=== PATIENT | female | born 1990 | race Caucasian/White ===

== ENCOUNTER → 2018-09-22 11:06 | Outpatient (CLI) | payer OTHER, SELFPAY ==
--- NOTE | 2018-09-22 11:08 | DI.RAD.S_ITS ---
PROCEDURE: XR SHOULDER LT MIN 2V INDICATIONS: Pain in left shoulder TECHNIQUE: 3 views of the shoulder were acquired. COMPARISON: [facility], , SHOULDER MINIMUM 2 VIEW LEFT, 07/17/2016, 17:46. FINDINGS: Bones: No fractures or dislocations. No suspicious bony lesions. Visualized ribs appear intact. Soft tissues: No suspicious soft tissue calcifications. IMPRESSION: Unremarkable left shoulder radiographs. MRI may be helpful for better evaluation, if indicated. Dictated by: Haris Flores M.D. on 09/22/2018 at 10:48 Approved by: Haris Flores M.D. on 09/22/2018 at 10:49
== END ==
PROVIDERS: PCP Student in an Organized Health Care Education/Training Program; Visit Provider Physician Assistant
DX: M25.512 Pain in left shoulder (principal)
CPT/HCPCS: 73030

== ENCOUNTER 2018-09-24 05:42 | Emergency (ER) | payer OTHER, SELFPAY ==
[2018-09-24 06:06] VITALS: BP 122/69; PULSE 107; RESP 16; TEMP 36.3; O2SAT 97; BMI 24.1
--- NOTE | 2018-09-24 06:12 | ED_ITS ---
HPI - Female Genitourinary General Chief complaint: Urogenital-Female Stated complaint: blood in urine feels need to go constantly Time Seen by Provider: 09/24/18 06:02 Source: patient Mode of arrival: ambulatory Limitations: no limitations History of Present Illness HPI Narrative: Patient is a 28-year-old female who presents with painful frequent urination. She noticed blood in her urine this morning. No fever or chills no flank pain no nausea vomiting. MD Complaint: UTI Related Data Home Medications Medication Instructions Recorded Confirmed norgestimate-ethinyl estradiol 1 tab PO DAILY 09/24/18 09/24/18 [Sprintec (28)] Previous Rx's Medication Instructions Recorded prazosin 1 mg capsule 1 mg PO BEDTIME #30 cap 08/11/18 nitrofurantoin monohyd/m-cryst 100 mg PO BID #10 cap 09/24/18 [Macrobid] nitrofurantoin monohyd/m-cryst 100 mg PO BID #14 cap 09/24/18 [Macrobid] Allergies Allergy/AdvReac Type Severity Reaction Status Date / Time clarithromycin Allergy Mild Verified 09/24/18 06:18 Sulfa (Sulfonamide Allergy Mild Verified 09/24/18 06:18 Antibiotics) Review of Systems Review of Systems GENERAL: Denies chills, fatigue, malaise, fever, sweats, travel HEENT: Denies sinus pain, ear pain, sore throat, difficulty swallowing, neck pain RESPIRATORY: Denies dyspnea, cough, wheezing, hemoptysis, sputum. CARDIOVASCULAR: Denies chest pain, palpitations, orthopnea, edema GASTROINTESTINAL: Denies nausea, vomiting, abdominal pain, diarrhea, constipation, melena. : See HPI MUSCULOSKELETAL: Denies weakness, joint pain, or bony pain SKIN: No rash, no erythema, no pruritus NEUROLOGIC: Denies weakness, dizziness, headache, numbness, change in speech, confusion PSYCHIATRIC: No concerning psychosocial issues. 12 point review of systems is negative except for those stated above and HPI PFSH Medical History Hx of fracture of toe (Resolved 04/2014) No pertinent past medical history (Resolved) Surgical History No history of previous surgery (Resolved) Family History Father Diabetes mellitus Mother Hypertension Social History Smoking Status: Never smoker alcohol intake: current (Socially) substance use type: does not use Exam Initial Vital Signs Initial Vital Signs: Vital Signs Temperature 97.4 F L 09/24/18 06:06 Pulse Rate 107 H 09/24/18 06:06 Respiratory Rate 16 09/24/18 06:06 Blood Pressure 122/69 09/24/18 06:06 Pulse Oximetry 97 09/24/18 06:06 GENERAL: Well-appearing, well-nourished and in no acute distress. HEENT: Head atraumatic,EOMI, pupils reactive CARDIOVASCULAR: Regular rate and rhythm without murmurs, rubs or gallops. RESPIRATORY: Breath sounds equal bilaterally, no wheezes rales or rhonchi. ABDOMEN: Soft, nontender. Normoactive bowel sounds all 4 quadrants. No guarding or rebound. : No CVA tenderness EXTREMITIES: Normal range of motion, no clubbing or edema. Neurovascularly intact NEUROLOGICAL: Alert and oriented x4.Normal gait and speech. SKIN: Warm, dry, no laceration, no petechiae, no rashes or lesions. Course Orders Ordered: ED Orders 09/24/18 05:50 Test Urine Stat Urinalysis and Microscopic Stat Urine Culture Stat Vital Signs - 8 hr 09/24/18 06:06 Temperature 97.4 F L Pulse Rate 107 H Respiratory Rate 16 Blood Pressure 122/69 Pulse Oximetry 97 MDM - Female Genitourinary Lab Data Attestation: I reviewed the patient's lab results. Lab Results 09/24/18 09/24/18 Range/Units 05:50 05:50 Urine Color Red Urine Appearance Turbid Urine pH 5.5 (4.5-8.0) Ur Specific [place] 1.025 (1.000-1.035) Urine Protein 2+ H (Negative) Urine Glucose (UA) Negative (Normal) g/dL Urine Ketones Negative (NEGATIVE) Urine Occult Blood 3+ H (Negative) Urine Nitrate Negative (Negative) Urine Bilirubin Negative (NEGATIVE) Urine Urobilinogen 0.2 (0.2) E.U./dL Ur Leukocyte Esterase 1+ H (NEGATIVE) Urine RBC >100/hpf H (0-5/HPF) Urine WBC 5-10/hpf H (0-5/HPF) Ur Squamous Epith Cells 0-1 /hpf Urine Bacteria Many (>30) H (None) Ur Culture Indicated? Specimen cultured Micro UA Comment Not Reportable Urine Test Negative (Negative) Discharge Plan Departure Patient Disposition: Home Clinical Impression: Urinary tract infection Discharge Date/Time: 09/24/18 06:33 Interventions: ED Discharge Assessment Last Done: 09/24/18 06:33 Instructions: DI for Urinary Tract Infection (UTI) Activity Restrictions/Additional Instructions: *You have been diagnosed with UTI *What to do: Increase fluid intake *Continue to take medications as directed: FA[facility]ED TO [facility] [place] Macrobid 1 tab twice a day for 5 days *Follow up with your primary care provider in 2-3 days *Return to ER if you should have any new, worsening or concerning symptoms Prescriptions: New nitrofurantoin monohyd/m-cryst [Macrobid] 100 mg capsule 100 mg PO BID Qty: 14 RF: 0 nitrofurantoin monohyd/m-cryst [Macrobid] 100 mg capsule 100 mg PO BID Qty: 10 RF: 0 No Action prazosin 1 mg capsule 1 mg PO BEDTIME Qty: 30 RF: 5 norgestimate-ethinyl estradiol [Sprintec (28)] 0.25-35 mg-mcg Tablet 1 tab PO DAILY RF: 0 Referrals: Teo Hicks MD [Primary Care Provider] -
[2018-09-24 06:18] LABS: Bilirubin Urine UA NEGATIVE (NEGATIVE); Glucose Urine UA NEGATIVE (Normal); Ketones Urine UA NEGATIVE (NEGATIVE); Leukocyte Esterase Urine UA 1+ (NEGATIVE); Nitrite Urine UA NEGATIVE (Negative); Occult Blood Urine UA 3+ (Negative); Protein Urine UA 2+ (Negative); Specific Gravity Urine UA 1.025 (1.000-1.035); Urobilinogen Urine UA 0.2 E.U./dL (0.2); pH Urine UA 5.5 (4.5-8.0)
[2018-09-24 06:20] LABS: Appearance Urine UA Turbid; Color Urine UA Red
[2018-09-24 06:21] LABS: Bacteria Urine Many (>30); RBC Urine >100/HPF (0-5/HPF); Squamous Epithelial Cell Urine 0-1 /HPF; WBC Urine 5-10/HPF (0-5/HPF)
[2018-09-24 06:22] LABS: Culture Indicated Urine Specimen Cultured
[2018-09-24 06:23] LABS: Pregnancy Test Urine Negative (Negative)
== END 2018-09-24 06:33 | disposition home or self-care (01) ==
PROVIDERS: Emergency Provider Emergency Medicine; PCP Student in an Organized Health Care Education/Training Program
DX: N39.0 Urinary tract infection, site not specified (principal)
CPT/HCPCS: 81001; 81025; 87077; 87086; 87186; 99282; 99283

== ENCOUNTER 2018-10-24 22:14 | Emergency (ER) | payer OTHER, SELFPAY ==
[2018-10-24 22:34] VITALS: BP 114/77; PULSE 79; RESP 15; TEMP 36.2; O2SAT 99; BMI 23.8
--- NOTE | 2018-10-24 23:12 | ED.ABDPAIN ---
HPI - Abdominal Pain General Chief Complaint: Abdominal Pain Stated Complaint: pt statesincreasing pain right iliac section Time Seen by Provider: 10/24/18 22:30 Source: patient and family Mode of arrival: ambulatory Limitations: no limitations History of Present Illness HPI narrative: 28-year-old female, nonsmoker presents with family in the chief complaint of right lower quadrant pain over the past few weeks that have become significantly worse today. She denies fever or chills nor nausea or vomiting. Her pain is worse with motion and improves with rest. Her last period was 2 weeks ago. She denies any vaginal bleeding or discharge. She denies any dysuria, frequency or urgency. MD complaint: abdominal pain Onset (ago): week(s) Pain Consistency: constant Location: RLQ Severity: moderate Quality: cramping and aching Radiation: none Migration to: no migration Relieving factors: rest Exacerbating factors: nothing and movement Associated symptoms: denies other symptoms Related Data Home Medications Medication Instructions Recorded Confirmed norgestimate-ethinyl estradiol 1 tab PO DAILY 09/24/18 09/28/18 [Sprintec (28)] Previous Rx's Medication Instructions Recorded prazosin 1 mg capsule 1 mg PO BEDTIME #30 cap 08/11/18 nitrofurantoin monohyd/m-cryst 100 mg PO BID #14 cap 09/24/18 [Macrobid] ondansetron HCl 4 mg tablet 4 mg PO Q4H PRN #30 tab 10/20/18 ketorolac 10 mg PO Q4-6H PRN #14 tab 10/25/18 Allergies Allergy/AdvReac Type Severity Reaction Status Date / Time clarithromycin Allergy Mild Verified 09/28/18 16:13 Sulfa (Sulfonamide Allergy Mild Verified 09/28/18 16:13 Antibiotics) Review of Systems Review of Systems All systems reviewed & are unremarkable except as noted in HPI and below Constitutional Denies chills, Denies fever(s), Denies lethargy and Denies weakness Eyes Denies change in vision, Denies eye discharge, Denies irritation and Denies loss of vision ENT Ears, Nose, Mouth, and Throat: Denies change in voice, Denies neck pain and Denies sore throat Cardiovascular Denies chest pain, Denies irregular heart rhythm, Denies lightheadedness, Denies palpitations, Denies dyspnea, Denies dyspnea on exertion and Denies orthopnea Respiratory Denies cough, Denies dyspnea, Denies dyspnea on exertion and Denies wheezing Gastrointestinal Gastrointestinal: Reports abdominal pain, Denies change in bowel habits, Denies diarrhea, Denies nausea and Denies vomiting Genitourinary Denies hematuria, Denies flank pain, Denies urinary incontinence and Denies urinary urgency Musculoskeletal Denies neck pain Integumentary/Breasts Denies pruritus, Denies erythema, Denies rash and Denies wounds Neurologic Denies confusion, Denies loss of vision and Denies weakness Psychiatric Denies anxiety, Denies confusion, Denies depression, Denies homicidal ideation and Denies suicidal ideation Endocrine Denies palpitations Hematologic/Lymphatic Denies easy bruising Allergic/Immunologic Denies wheezing PFSH Medical History Hx of fracture of toe (Resolved 04/2014) No pertinent past medical history (Resolved) Surgical History No history of previous surgery (Resolved) Family History Father Diabetes mellitus Mother Hypertension Social History Smoking Status: Never smoker alcohol intake: current (Socially) substance use type: does not use Exam Narrative Exam Narrative: GENERAL: This is a well-nourished, well-developed patient, in mild distress. HEAD: Atraumatic. Normocephalic. No temporal or scalp tenderness. EYES: Pupils equal round and reactive. Extraocular motions intact. No scleral icterus. No injection or drainage. ENT: Nose without bleeding, purulent drainage or septal hematoma. Throat without erythema, tonsillar hypertrophy or exudate. Uvula midline. Airway patent. NECK: Trachea midline. No JVD or lymphadenopathy. Supple, nontender, no meningeal signs. CARDIOVASCULAR: Regular rate and rhythm without murmurs, gallops, or rubs. RESPIRATORY: Clear to auscultation. Breath sounds equal bilaterally. No wheezes, rales, or rhonchi. GASTROINTESTINAL: Abdomen soft, tender in the right lower quadrant nondistended. No hepato-splenomegaly, or palpable masses. No guarding. Mild increase with heel tap EXTREMITIES: No clubbing, cyanosis, or edema. No joint tenderness, effusion, or edema noted. BACK: Nontender without deformity or crepitance. No flank tenderness. NEURO: AOx3. SKIN: No rash or erythema. Initial Vital Signs Initial Vital Signs: Vital Signs Temperature 97.1 F L 10/24/18 22:34 Pulse Rate 79 10/24/18 22:34 Respiratory Rate 15 10/24/18 22:34 Blood Pressure 114/77 10/24/18 22:34 Pulse Oximetry 99 10/24/18 22:34 Course Orders Ordered: ED Orders 10/24/18 23:25 Basic Metabolic Panel Stat Complete Blood Count AUTO DIFF Stat 10/25/18 00:05 US pelvic complete Stat Discontinued Medications Sodium Chloride (Normal Saline 0.9%) 1,000 mls @ 1,000 mls/hr IV BOLUS ONE Stop: 10/25/18 00:55 Last Infusion: 10/25/18 01:11 Dose: 1,000 mls/hr Admin: 10/25/18 00:28 Dose: 1,000 mls/hr Ketorolac Tromethamine (Toradol) 15 mg IV NOW ONE Stop: 10/25/18 00:52 Last Admin: 10/25/18 01:01 Dose: 15 mg Vital Signs - 8 hr 10/24/18 22:34 10/25/18 01:30 Temperature 97.1 F L Pulse Rate 79 78 Respiratory Rate 15 18 Blood Pressure 114/77 109/60 Pulse Oximetry 99 99 MDM - Abdominal Pain Differential Diagnosis Differential diagnosis: Likely abdominal pain, acute appendicitis, calculus of kidney, constipation, endometriosis and small bowel obstruction Medical Records Attestation: I reviewed the patient's medical records. Lab Data Attestation: I reviewed the patient's lab results. Result diagrams: 10/24/18 23:25 10/24/18 23:25 Lab Results 10/24/18 10/24/18 Range/Units 23:25 23:25 WBC 7.9 (4.5-11.0) X10^3/uL RBC 4.16 (4.0-5.2) X10^6/uL Hgb 12.6 (12.0-16.0) g/dL Hct 36.8 (36-46) % MCV 88.4 (80-100) fL MCH 30.3 (26-34) PG MCHC 34.2 (30-36) % RDW 12.8 (11.6-14.8) % Plt Count 245 (150-400) X10^3/uL Neut % (Auto) 53.0 (50-75) % Lymph % (Auto) 34.6 (25-40) % [place] % (Auto) 7.6 (3-14) % Eos % (Auto) 3.8 (2-4) % Baso % (Auto) 1.0 (0-2) % Neut # (Auto) 4200 (0646-9480) /uL Sodium 138 (137-145) mmol/L Potassium 4.0 (3.4-5.1) mmol/L Chloride 105 (98-107) mmol/L Carbon Dioxide 25 (22-32) mmol/L BUN 16 (7-17) mg/dL Creatinine 0.70 (0.52-1.04) mg/dL Estimated GFR > 60.0 (>60) mL/min BUN/Creatinine Ratio 22.9 H (6-22) Glucose 111 H (70-100) mg/dL Calcium 9.1 (8.4-10.2) mg/dL Point of care testing: Point of Care Testing Test Results Negative Urine Dip Bedside Urine Glucose Negative Bedside Urine Bilirubin - Negative Bedside Urine Ketone - Negative Urine Specific [place] 1.020 Bedside Urine Occult Blood - Negative Bedside Urine pH 7.0 Bedside Urine Protein - Negative Bedside Urine Urobilinogen - Negative Bedside Urine Nitrite - Negative Bedside Urine Leukocytes - Negative Esterase Imaging Data Pelvic US: Radiologist's impression: Bilateral complex adnexal cysts versus cystic masses. The right suggestive 4.3 cm endometrioma but there is a nonvascular or hypovascular nodular component with septations. On the left there is a 3.8 cm cystic structure appears more simple but there is a nodule within the parenchyma. Gyne consult recommended MDM Narrative Medical decision making narrative: RLQ pain, worse with motion and improves with rest. No radiation. 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 Haider and she understands this need. She verbalizes her understanding. Discharge Plan Departure Patient Disposition: Home Clinical Impression: Ovarian cyst Discharge Date/Time: 10/25/18 01:11 Interventions: ED Discharge Assessment Last Done: 10/25/18 01:30 Instructions: DI for Ovarian Cyst Activity Restrictions/Additional Instructions: *You have been diagnosed with [ right ovarian hemorrhagic cyst ] *What to do: *Take medications as directed: prescription electronically transmitted to [facility] at your request *Follow up with your primary care provider in 2-3 days, call for an appointment. Let them know you were seen in the Emergency Department and that we ask that you be seen in follow up *Return to ER if you should have any new, worsening or concerning symptoms Prescriptions: New ketorolac 10 mg tablet 10 mg PO Q4-6H PRN (Reason: pain) Qty: 14 RF: 0 No Action prazosin 1 mg capsule 1 mg PO BEDTIME Qty: 30 RF: 5 ondansetron HCl [Zofran] 4 mg tablet 4 mg PO Q4H PRN (Reason: nausea and vomiting) Qty: 30 RF: 1 norgestimate-ethinyl estradiol [Sprintec (28)] 0.25-35 mg-mcg Tablet 1 tab PO DAILY RF: 0 nitrofurantoin monohyd/m-cryst [Macrobid] 100 mg capsule 100 mg PO BID Qty: 14 RF: 0 Referrals: Teo Hicks MD [Primary Care Provider] - Mario Haider MD [Physician] -
--- NOTE | 2018-10-25 00:05 | DI.US.S_ITS ---
PROCEDURE: US PELVIC COMPLETE INDICATIONS: RLQ pain, mid cycle TECHNIQUE: Real-time scanning was performed of the pelvic organs, with image documentation. Additional endovaginal scanning was necessary due to incomplete visualization of the adnexal and endometrial structures by transabdominal scanning. COMPARISON: None. FINDINGS: Transabdominal scanning: Limited scanning through the kidneys shows no hydronephrosis. No pathologic free abdominal or pelvic fluid. Endovaginal scanning: Uterus: Uterus is normal in size at 6.2 x 3.4 x 4.7 cm. The endometrium measures 4.0 mm in combined thickness. Uterus is sonographically normal. Ovaries: Right adnexa measures 4.7 x 4.8 x 5.1 cm. There is a 4.3 x 4.0 x 4.1 cm complex cyst in the right adnexa. Left adnexa measures 4.9 x 3.8 x 5.1 cm. There is a 3.4 x 3.6 x 3.8 cm complex cyst in the left adnexa which has a 0.8 x 0.7 x 0.8 cm solid component. Free fluid is noted adjacent to the adnexa bilaterally. IMPRESSION: 1. Complex bilateral adnexal cysts. Cysts may represent benign etiology including hemorrhagic cysts or endometriomas or malignancy. Recommend gynecologic consultation and short-term followup ultrasound in 4-6 weeks or MRI of the pelvis for definitive characterization. 2. Small amount of free fluid adjacent to the adnexa bilaterally. Dictated by: Meena Boyle MD, PhD on 10/25/2018 at 8:12 Approved by: Meena Boyle MD, PhD on 10/25/2018 at 8:16
[2018-10-25 00:08] LABS: Add Manual Diff / Slide Review NO; Eosinophils Percent Auto 3.8 % (2-4); Hematocrit 36.8 % (36-46); Hemoglobin 12.6 g/dL (12.0-16.0); Lymphocytes Percent Auto 34.6 % (25-40); Mean Corpuscular HGB Conc 34.2 % (30-36); Mean Corpuscular Hemoglobin 30.3 PG (26-34); Mean Corpuscular Volume 88.4 fL (80-100); Monocytes Percent Auto 7.6 % (3-14); Neutrophils Absolute Auto 4200 /uL (1500-7000); Platelet Count 245 X10^3/uL (150-400); Red Blood Cell Count 4.16 X10^6/uL (4.0-5.2); Red Cell Distribution Width 12.8 % (11.6-14.8); White Blood Cell Count 7.9 X10^3/uL (4.5-11.0)
[2018-10-25 00:13] LABS: BUN Creatinine Ratio 22.9 (6-22); Blood Urea Nitrogen 16 mg/dL (7-17); Calcium 9.1 mg/dL (8.4-10.2); Carbon Dioxide 25 mmol/L (22-32); Chloride 105 mmol/L (98-107); Estimated Glomerular Filt Rate > 60.0 mL/min (>60); Glucose 111 mg/dL (70-100); HEMOLYSIS < 15 (0-50); Sodium 138 mmol/L (137-145)
[2018-10-25] MEDS: SODIUM CHLORIDE 0.9% 1,000 ML 1000 ML IV (00:28)
--- NOTE | 2018-10-25 00:40 | PC.NURSE ---
Stand by at bedside for US test for Barry, tech. Pt tolerated well.
[2018-10-25] MEDS: KETOROLAC 60 MG/2 ML VIAL 15 MG IV (01:01)
[2018-10-25 01:30] VITALS: BP 109/60; PULSE 78; RESP 18; O2SAT 99
== END 2018-10-25 01:11 | disposition home or self-care (01) ==
PROVIDERS: Emergency Provider Emergency Medicine; PCP Student in an Organized Health Care Education/Training Program
DX: N83.209 Unspecified ovarian cyst, unspecified side (principal)
CPT/HCPCS: 76830; 76856; 80048; 81003; 81025; 85025; 96361; 96374; 99283; 99284; J1885

== ENCOUNTER 2019-03-01 08:15 | Outpatient (RCR) | payer OTHER, SELFPAY ==
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
--- NOTE | 2018-11-25 16:15 | PT.OPPOC ---
Current Diagnoses Unspecified rotator cuff tear or rupture of unspecified shoulder, not specified as traumatic (11/25/18) Provider Visit Care Team Role Provider Type Teo Hicks MD Attending Provider Physician Primary Care Provider Specialty: Internal Medicine Address: [address] [place] [address], [id number] Email: Plan Of Care PT-OP-T Assessment and Plan Start: 11/25/18 07:26 Freq: Status: Active Protocol: Document 11/25/18 10:30 AMB (Rec: 11/25/18 16:11 AMB [email or web address]) Physical Therapy Assessment Rehab Potential Rehabilitation Potential Good Evaluation Complexity Number of Personal Factors/Comorbidities 1-2 Number of Body Systems Impaired 4 or More Clinical Presentation at Evaluation Stable Impairments Impairments Functional Activities Pain Posture ROM Soft Tissue Mobility Goals Three 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 STG Duration 5 weeks Two Impairment Return to exercise Short Term Goal (STG) Carly will perform overhead lifting and tricep press with 10# with 1/10 pain or less. STG Duration 5 weeks One Impairment Strength Short Term Goal (STG) Carly will be independent with a UE strengthening HEP. STG Duration 5 weeks Group Home Goal (LTG) Carly will have 5/5 UE strength in all planes. LTG Duration 10 weeks Assessment Summary Assessment Carly attends physical therapy with an acute exacerbation of a chronic shoulder injury. Given her overall hypermobility, muscular stability is very important, and while her shoulder is fairly strong, she is lacking external rotation strength and lower trap/rhomboid scapular stabilization. 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 Her high deductable may be a limiting factor. Physical Therapy Plan Frequency and Duration Frequency of Treatment 1x/Week Duration of Treatment 10 weeks Plan of Care Start Date 11/25/18 Plan of Care End Date 02/03/19 Therapeutic Interventions Therapeutic Interventions Home Exercise Program Joint Mobilizations Manual Therapy Neuromuscular Re-education Self-Care/Home Management Soft Tissue Mobilization Taping Therapeutic Activities Therapeutic Exercises Modalities Cold Pack/Ice Massage Electric Stimulation Hot Packs Ultrasound Next Visit Focus/Plan Next Note Type Treatment Note Next Visit Plan Progress scapular stabilization as tolerated, instruct in neck stretching. Plan of Care Dates Plan of Care Start Date 11/25/18 Plan of Care End Date 02/03/19 Please Sign and Return: I have reviewed this Plan of Care and certify that the skilled therapy services above are required to meet the patient?s needs. Physician Signature Date Printed Name and Credentials Clinical Instructor Signature Printed Name and Credentials
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
--- NOTE | 2019-02-02 14:16 | PT.OPPOC ---
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 MET STG Duration 5 weeks Two Impairment Return to exercise Short Term Goal (STG) Carly will perform overhead lifting and tricep press with 10# with 1/10 pain or less. Partially met, occasional L shoulder pain. STG Duration 5 weeks One Impairment Strength Short Term Goal (STG) Carly will be independent with a UE strengthening HEP. MET STG Duration 5 weeks Front End Engineer Goal (LTG) Carly will have 5/5 UE strength in all planes. MET LTG Duration 10 weeks Assessment Summary Assessment Pt has made improvements in L shoulder strength and subjectively reports feeling stronger and having less pain. 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 Pt benefits from skilled PT for further scapular and glenohumeral strenthening to increase ability to complete work duties and recreational weightlifting pain-free and with safe mechanics. Physical Therapy Plan Frequency and Duration Frequency of Treatment 1x/Week Duration of Treatment 6 weeks Plan of Care Start Date 02/02/19 Plan of Care End Date 03/16/19 Therapeutic Interventions Therapeutic Interventions Home Exercise Program Joint Mobilizations Manual Therapy Neuromuscular Re-education Self-Care/Home Management Soft Tissue Mobilization Taping Therapeutic Activities Therapeutic Exercises Modalities Cold Pack/Ice Massage Electric Stimulation Hot Packs Ultrasound Next Visit Focus/Plan Next Note Type Treatment Note Next Visit Plan Progression of scapular and GH strengthening. Plan of Care Dates Plan of Care Start Date 02/02/19 Plan of Care End Date 03/16/19 Please Sign and Return: I have reviewed this Plan of Care and certify that the skilled therapy services above are required to meet the patient?s needs. Physician Signature Date Printed Name and Credentials Clinical Instructor Signature Printed Name and Credentials
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
== END 2019-03-02 16:41 | disposition home or self-care (01) ==
LOC: PHYS 08:15
PROVIDERS: PCP Student in an Organized Health Care Education/Training Program; Visit Provider Student in an Organized Health Care Education/Training Program
DX: M75.100 Unspecified rotator cuff tear or rupture of unspecified shoulder, not specified as traumatic (principal)
CPT/HCPCS: 97110; 97140; 97161

== ENCOUNTER 2024-07-17 15:10 | Emergency (ER) | payer OTHER, SELFPAY ==
[2024-07-17 15:25] VITALS: BP 115/57; PULSE 60; RESP 16; TEMP 36.6; O2SAT 100; BMI 29.9
--- NOTE | 2024-07-17 15:50 | ED_ITS ---
HPI - Recheck/Abnormal Lab/Rx <Destini Gamboa PA-C - Last Filed: 07/17/24 15:53> General Chief Complaint: Recheck/Abnormal Lab/Rx Stated Complaint: 7 weeks , needs zofran Time Seen by Provider: 07/17/24 15:33 Source: patient Mode of arrival: Ambulatory History of Present Illness HPI narrative: 34-year-old female A0 M0 here with nausea vomiting. Requesting a prescription of Zofran. Has her 1st OBGYN appointment on 07/25/2024 Related Data Previous Rx's Medication Instructions Recorded prazosin 1 mg capsule 1 mg PO BEDTIME #30 caps 02/21/19 ondansetron HCl 4 mg tablet 4 mg PO Q4H PRN nausea and 04/27/19 (Zofran) vomiting #30 tabs norgestimate 0.25 mg-ethinyl 1 tab PO DAILY #336 tabs 03/23/20 estradiol 35 mcg tablet (Sprintec (28)) ondansetron HCl 4 mg tablet 4 mg PO Q8-12H PRN nausea and 07/17/24 vomiting #20 tabs Allergies Allergy/AdvReac Type Severity Reaction Status Date / Time clarithromycin Allergy Mild Verified 07/17/24 15:29 Sulfa (Sulfonamide Allergy Mild Verified 07/17/24 15:29 Antibiotics) Review of Systems <Destini Gamboa PA-C - Last Filed: 07/17/24 15:53> Review of Systems Narrative: Negative except as above Gastrointestinal Comments: Nausea with Patient History <Destini Gamboa PA-C - Last Filed: 07/17/24 15:53> Medical History No pertinent past medical history Hx of fracture of toe (04/2014) Surgical History No history of previous surgery Family History Father Diabetes mellitus Mother Hypertension Social History Smoking Status: Never smoker alcohol intake: current (Socially) substance use type: does not use Smoking Status: Never smoker alcohol intake frequency: 0-2 drinks per day Substance Use Type: does not use Exam <Destini Gamboa PA-C - Last Filed: 07/17/24 15:53> Initial Vital Signs Initial Vital Signs: Vital Signs Temperature 97.9 F 07/17/24 15:25 Pulse Rate 60 07/17/24 15:25 Respiratory Rate 16 07/17/24 15:25 Blood Pressure 115/57 L 07/17/24 15:25 Pulse Oximetry 100 07/17/24 15:25 Oxygen Delivery Method Room Air 07/17/24 15:25 Reviewed Const Other: Alert oriented no acute distress Eyes Other: Pupils PERRLA, EOMs are intact Skin Other: Warm pink and dry Neuro Other: Alert and oriented no acute distress Extrem Other: Range of motion, strength, pulses, cap refill preserved in the upper and lower extremities Psych Other: Appearance, speech, mood, affect, attitude, thought process, thought content and judgment are intact <Blake Garcia DO - Last Filed: 07/17/24 15:58> Initial Vital Signs Initial Vital Signs: Vital Signs Temperature 97.9 F 07/17/24 15:25 Pulse Rate 60 07/17/24 15:25 Respiratory Rate 16 07/17/24 15:25 Blood Pressure 115/57 L 07/17/24 15:25 Pulse Oximetry 100 07/17/24 15:25 Oxygen Delivery Method Room Air 07/17/24 15:25 Course <Destini Gamboa PA-C - Last Filed: 07/17/24 15:53> Vital Signs Vital signs: Vital Signs - 8 hr 07/17/24 15:25 Temperature 97.9 F Pulse Rate 60 Respiratory Rate 16 Blood Pressure 115/57 L Pulse Oximetry 100 Oxygen Delivery Method Room Air Reviewed <DO Pradeep Guerrero Last Filed: 07/17/24 15:58> Vital Signs Vital signs: Vital Signs - 8 hr 07/17/24 15:25 Temperature 97.9 F Pulse Rate 60 Respiratory Rate 16 Blood Pressure 115/57 L Pulse Oximetry 100 Oxygen Delivery Method Room Air MDM - Recheck/Abnormal Lab/Rx <Destini Gamboa PA-C - Last Filed: 07/17/24 15:53> MDM Narrative Medical decision making narrative: 34-year-old female 1st M0 who presents to the emergency room department with -induced nausea, requesting Zofran. First OB appointment 07/25/2024. Zofran prescription sent to the pharmacy Differential diagnosis nausea and Discharge Plan Departure Patient Disposition: Home Clinical Impression: Medication refill, Nausea and vomiting during Activity Restrictions/Additional Instructions: Please follow-up with Dr. Valdez at your appointment on the Prescriptions: New ondansetron HCl 4 mg tablet 4 mg PO Q8-12H PRN (Reason: nausea and vomiting) Qty: 20 0RF No Action prazosin 1 mg capsule 1 mg PO BEDTIME Qty: 30 11RF ondansetron HCl [Zofran] 4 mg tablet 4 mg PO Q4H PRN (Reason: nausea and vomiting) Qty: 30 1RF norgestimate-ethinyl estradiol [Sprintec (28)] 0.25-35 mg-mcg tablet 1 tab PO DAILY Qty: 336 2RF Rx Instructions: pt will need to be seen before next renewal Referrals: Herminia Almazan DO [Primary Care Provider] - Stand Alone Forms: Patient Portal/API ED Sign-out <Blake Garcia DO - Last Filed: 07/17/24 15:58> [facility] Dr Garcia Co-Sign Statement: I was available for consultation during this patient's emergency department visit. This chart is signed by myself for administrative purposes only. I did not have direct contact with this patient during this visit. They were seen independently by the APC.
== END 2024-07-17 15:47 | disposition home or self-care (01) ==
PROVIDERS: Emergency Provider Physician Assistant; PCP Student in an Organized Health Care Education/Training Program
DX: O21.9 Vomiting of pregnancy, unspecified (principal); Z76.0 Encounter for issue of repeat prescription; Z3A.01 Less than 8 weeks gestation of pregnancy
CPT/HCPCS: 99281

== ENCOUNTER → 2024-07-25 15:09 | Outpatient (CLI) | payer OTHER, SELFPAY ==
[2024-07-25 20:39] LABS: Urine N gonorrhoeae NOT DETECTED
[2024-07-25 20:47] LABS: Urine Chlamydia NOT DETECTED
== END ==
PROVIDERS: Visit Provider Student in an Organized Health Care Education/Training Program
DX: Z34.01 Encounter for supervision of normal first pregnancy, first trimester (principal); Z3A.08 8 weeks gestation of pregnancy
CPT/HCPCS: 87491; 87591

== ENCOUNTER → 2024-08-22 13:41 | Outpatient (CLI) | payer OTHER, SELFPAY ==
[2024-08-22 14:47] LABS: Natera Collection Specimen Collected
[2024-08-22 15:20] LABS: Add Manual Diff / Slide Review NO; Basophils Absolute Auto 0 /uL (0-100); Basophils Percent Auto 0.5 % (0-2); Eosinophils Absolute Auto 100 /uL (0-450); Eosinophils Percent Auto 1.5 % (2-4); Hematocrit 35.6 % (36-46); Hemoglobin 12.4 g/dL (12.0-16.0); Lymphocytes Absolute Auto 1600 /uL (1100-4500); Lymphocytes Percent Auto 23.6 % (25-40); Mean Corpuscular HGB Conc 34.9 % (30-36); Mean Corpuscular Hemoglobin 30.4 PG (26-34); Mean Corpuscular Volume 87.2 fL (80-100); Monocytes Absolute Auto 400 /uL (0-900); Monocytes Percent Auto 6.7 % (3-14); Neutrophils Absolute Auto 4500 /uL (1500-7000); Neutrophils Percent Auto 67.7 % (50-75); Platelet Count 238 X10^3/uL (150-400); Red Blood Cell Count 4.08 X10^6/uL (4.0-5.2); Red Cell Distribution Width 12.5 % (11.6-14.8); White Blood Cell Count 6.6 X10^3/uL (4.5-11.0)
[2024-08-22 16:14] LABS: Rubella Antibody IgG 8.4 IU/mL (>15)
[2024-08-22 16:25] LABS: Hepatitis B Surface Antigen NEGATIVE s/c (NEGATIVE)
[2024-08-22 16:35] LABS: HIV 1 & 2 Ab/Ag 4th Gen Combo NEGATIVE (NEGATIVE); Hep C Virus Ab w/Reflex Quant NEGATIVE s/c (NEGATIVE)
[2024-08-24 02:08] LABS: RPR Screen Non Reactive (Non Reactive)
[2024-08-24 09:09] LABS: Varicella IgG Antibody Reactive (Non Reactive)
== END ==
LOC: LAB 13:42
PROVIDERS: Referring Provider Student in an Organized Health Care Education/Training Program; Visit Provider Student in an Organized Health Care Education/Training Program
DX: Z34.01 Encounter for supervision of normal first pregnancy, first trimester (principal)
CPT/HCPCS: 36415; 80055; 86787; 86803; 86850; 86900; 86901; 87389

== ENCOUNTER → 2024-09-06 13:51 | Outpatient (CLI) | payer OTHER, SELFPAY | PROVIDERS: Referring Provider Internal Medicine; Visit Provider Internal Medicine | DX: Z23 Encounter for immunization (principal) | CPT/HCPCS: 90471; 90656 ==

== ENCOUNTER → 2024-10-24 06:50 | Outpatient (CLI) | payer OTHER, SELFPAY ==
--- NOTE | 2024-10-24 06:51 | DI.US.S_ITS ---
PROCEDURE: US OB >= 14 WEEKS FETUS INDICATIONS: 20 week anatomy scan OUTSIDE/PRIOR DATING DATA: Last menstrual period (LMP): 05/29/2024. LMP-based estimated date of delivery (RAVI): 03/05/2023. First dating scan (date and location): 07/25/2024. Estimated date of delivery (RAVI) from first dating scan: 03/04/2025. The calculations are made using the clinical RAVI of 03/05/2025. TECHNIQUE: Real-time scanning was performed of the fetus, with image documentation and biometric measurements. Endovaginal scanning: Not performed COMPARISON: [facility], , OB <= 14 WEEKS FETUS, 08/22/2024, 13:42. FINDINGS: General: A single living intrauterine gestation is present. Presentation: Vertex. Placenta: Placental position is anterior, without previa. Amniotic fluid index: 13.5 cm, normal range is 5-24 cm. Single deepest vertical pocket is 5.6 cm. heart rate: 150 beats per minute. Maternal cervical canal: 2.8 cm long. Normal lower limit is 2.5 cm. biometrics: Biparietal diameter: 5.3 cm, 22 weeks 0 days Head circumference: 20.1 cm, 22 weeks 2 days Abdominal circumference: 18.2 cm, 23 weeks 0 days Femur length: 3.7 cm, 21 weeks 4 days Clinically estimated gestational age: 21 weeks 1 day Composite gestational age from present scan: 22 weeks 2 days Estimated weight and percentile: 497 g, 95th percentile. Anatomic survey: Neuro: Ventricles are non-dilated at less than 10 mm. Cisterna magna is normal at 3-11 mm. Cerebellum is normal in size and morphology. Nuchal skin fold: Normal at less than 6 mm between 14-21 weeks gestational age. Face: Nose and lips, facial profile are normal. Spine: No evidence for spina bifida. Heart: 4-chambered heart is present, with normal ventricular outflow tracts. Diaphragm: Diaphragm is intact. Stomach: Left-sided stomach is present. Kidneys: No hydronephrosis. Normal is less than 5 mm in 2nd trimester, less than 7 mm in 3rd trimester. Cord: 3-vessel cord has orthotopic insertion. Bladder: Normal in size. Extremities: All 4 extremities identified. Anterior uterine fibroid measuring 3.6 x 2.8 x 1.8 cm. IMPRESSION: 1. [place] living intrauterine at 22 weeks 2 days based on today's ultrasound. Fetus is in the 95th percentile for weight. 2. Normal placenta and amniotic fluid. 3. Normal and complete anatomic survey. 4. Uterine fibroid measuring 3.6 cm. We strive to produce accurate, complete, and clear reports of imaging services. To assist us in improving patient care, this report was composed using standard report templates and voice recognition software. Therefore, it may contain abnormal punctuation, insertions and/or omissions. Occasional wrong-word or sound-alike substitutions may occur. Though we review the report and make efforts to correct it, we do recommend that the report be read carefully in proper context to recognize any text inaccuracies. Dictated by: Jeremy Quesada M.D. on 10/24/2024 at 13:49 Approved by: Jeremy Quesada M.D. on 10/24/2024 at 13:54
[2024-10-27 20:38] LABS: AFP Value 81.2 ng/mL (.); Gest Age on Col Date 21.1 weeks (.); Insulin Dep Diabetes No (.); OSBR Risk 1IN 3810 (.); Results Report (.); Test Results *Screen Negative* (.)
[2024-10-28 09:11] LABS: PDF SCANNED
== END ==
PROVIDERS: Referring Provider Student in an Organized Health Care Education/Training Program; Visit Provider Student in an Organized Health Care Education/Training Program
DX: O34.12 Maternal care for benign tumor of corpus uteri, second trimester (principal); D25.9 Leiomyoma of uterus, unspecified; Z3A.22 22 weeks gestation of pregnancy
CPT/HCPCS: 76811; 82105

== ENCOUNTER 2024-12-01 16:45 | Observation (INO) | payer OTHER, SELFPAY ==
[2024-12-01] MEDS: NIFEdipine 10 MG CAPSULE PO ×4 (17:23→18:26)
--- NOTE | 2024-12-01 17:52 | DI.US.S_ITS ---
PROCEDURE: US OB LIMITED INDICATIONS: cramping OUTSIDE/PRIOR DATING DATA: Last menstrual period (LMP): 05/29/2024. LMP-based estimated date of delivery (RAVI): 03/05/2025. First dating scan (date and location): 07/25/2024. Estimated date of delivery (RAVI) from first dating scan: 03/04/2025. The calculations are made using the clinical RAVI of 03/05/2025. TECHNIQUE: Real-time scanning was performed of the fetus, with image documentation and biometric measurements. Endovaginal scanning: Not performed COMPARISON: [facility], OB >= 14 WEEKS FETUS, 10/24/2024, 7:15. FINDINGS: General: A single living intrauterine gestation is present. Presentation: Breech. Placenta: Placental position is anterior , without previa. Amniotic fluid index: 19.9 cm, normal range is 5-24 cm. Single deepest vertical pocket is 5.9 cm. heart rate: 148 beats per minute. Maternal cervical canal: 3 cm long. Normal lower limit is 2.5 cm. biometrics: Biparietal diameter: 7.1 centimeters, 28 weeks 3 days Head circumference: 26.4 centimeters, 28 weeks 5 days Abdominal circumference: 26.1 centimeters, 30 weeks 2 days Femur length: 5.0 centimeters, 27 weeks 0 days Clinically estimated gestational age: 26 weeks 4 days Composite gestational age from present scan: 28 weeks 4 days Estimated weight and percentile: 1308 grams, a 9th percentile Other: Not applicable. IMPRESSION: 1. Single live intrauterine consistent with 20 weeks and 4 days. 2. Estimated weight is in the 99th percentile, concerning for macrosomia. We strive to produce accurate, complete, and clear reports of imaging services. To assist us in improving patient care, this report was composed using standard report templates and voice recognition software. Therefore, it may contain abnormal punctuation, insertions and/or omissions. Occasional wrong-word or sound-alike substitutions may occur. Though we review the report and make efforts to correct it, we do recommend that the report be read carefully in proper context to recognize any text inaccuracies. Dictated by: Paulo Durán M.D. on 12/01/2024 at 19:44 Approved by: Paulo Durán M.D. on 12/01/2024 at 19:46
[2024-12-01 18:12] LABS: Appearance Urine UA CLEAR; Bilirubin Urine UA NEGATIVE (NEGATIVE); Color Urine UA YELLOW; Glucose Urine UA NEGATIVE (Negative); Ketones Urine UA NEGATIVE (NEGATIVE); Leukocyte Esterase Urine UA NEGATIVE (NEGATIVE); Nitrite Urine UA NEGATIVE (Negative); Occult Blood Urine UA NEGATIVE (Negative); Protein Urine UA NEGATIVE (Negative); Specific Gravity Urine UA <=1.005 (1.000-1.035); Urobilinogen Urine UA 0.2 E.U./dL (0.2)
[2024-12-01 18:38] LABS: RBC Urine 0-1/HPF (0-5/HPF); Urine Volume 10mL (spun); WBC Urine 0-1/HPF (0-5/HPF)
[2024-12-01 18:39] LABS: Bacteria Urine Moderate (10-30); Culture Indicated Urine Cult Not Indicated; Squamous Epithelial Cell Urine 5-10 /HPF (0-5/HPF)
[2024-12-01] MEDS: NIFEdipine 30 MG TAB ER 60 MG PO (19:45)
--- NOTE | 2024-12-01 20:09 | P.TNLD_ITS ---
Visit Information Visit Information Date of evaluation: 12/01/24 Primary OB Provider: Herminia Almazan On-call OB Provider: Eric Barton Reason for Evaluation: Yes other Comments/Additional reasons for admission: Carly is a 34-year-old primigravida, RAVI 03/05/2025 now at 26+ 4 weeks gestational age who has been having irregular but increasingly intense uterine contractions for the last 18 hours or so. She has not experienced any decreased movement, bleeding, leakage of fluid, or change in vaginal discharge. course thus far has been uneventful with the appropriate milestones. Twenty week anatomy scan did identify a solitary anterior intramural uterine fibroid which has to this point been asymptomatic and her baby is uppermost percentiles insofar as EFW, confirmed again by this evening's US. In addition to the patient's cramping, she also has a midline periumbilical discomfort which has been present for the last several days. Her baby remains active and she herself has remained well hydrated. She has no URI, UTI, or viral syndrome symptoms. Vital Signs Vital Signs: BP: 104/58 P: 113 T: 36.0C [facility] Medical History (Updated 12/01/24 @ 19:48 by Eric Barton MD) Headache Chicken pox (~1993) Fibroids Abnormal Pap smear of cervix ADHD Ovarian cyst Post traumatic stress disorder (PTSD) History of hypoglycemia (03/31/16) Tension headache Hemorrhagic ovarian cyst Left shoulder strain Excessive thirst (03/31/16) Hx of fracture of toe (04/2014) Surgical History (Updated 09/06/24 @ 19:23 by Melanie Beach) Anesthesia History of esophagogastroduodenoscopy (EGD) (~2019) History of hysterosalpingogram History of gynecologic surgery (~08/2023) Family History (Updated 09/06/24 @ 19:28 by Melanie Beach) Father Diabetes mellitus Tachycardia Enlarged prostate Mother Hypertension Hyperlipidemia Pre-diabetes Anxiety ADHD Grandmother Alzheimer's dementia Lupus Mental health problem Sister Connective tissue disorder Anxiety Calcification of joint Sister Hyperlipidemia Grandfather Broken hip Living in assisted living Cancer Hyperlipidemia Grandmother Hyperlipidemia Hypertension Stroke Social History marital status: number of children: 0 household members: spouse lives independently: Yes caregiver/support person: No pets and animals: Yes (large dog) education level: college (Associate's degree) 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/hazards: Yes special jo needs: No travel history: recent (domestic only) seatbelt use: always helmet use: Yes water heater temp set < 120 deg: Yes working smoke detector in home: Yes fire extinguisher in home: Yes carbon monox detector in home: Yes firearms in home: Yes firearms unloaded and locked: Yes do you feel safe at home: Yes Smoking Status: Never smoker second hand exposure: No alcohol intake: former (Occasionally when not ) substance use type: does not use during the past year weight has: remained stable well-balanced diet: daily or most days daily servings fruits/ve-4 Type(s) of exercise: walking frequency: daily duration: 30-45 minutes/day Review of Systems Review of Systems Narrative: Problem-specific ROS positives included in HPI Exam HENMT Head: normal to inspection, normocephalic and atraumatic Eyes General: appearance normal, both eyes and all related structures Resp Effort & Inspection: normal respiratory effort and able to speak in complete sentences Auscultation: clear to auscultation bilaterally GI Inspection: normal to inspection Palpation: soft, no hepatosplenomegaly and tender (Tender, 4 cm palpable supraumbilical subserosal myoma ) Uterus Location (Fundal Height): 26 Presentation: jacqueline breech Estimated Weight (lbs): 2 Psych Mental Status: mental status grossly normal Mood: congruent mood Objective Imaging OB Growth & Cx Length 12/01/2024: Radiologist's impression: PROCEDURE: US OB LIMITED INDICATIONS: cramping OUTSIDE/PRIOR DATING DATA: Last menstrual period (LMP): 05/29/2024. LMP-based estimated date of delivery (RAVI): 03/05/2025. First dating scan (date and location): 07/25/2024. Estimated date of delivery (RAVI) from first dating scan: 03/04/2025. The calculations are made using the clinical RAVI of 03/05/2025. TECHNIQUE: Real-time scanning was performed of the fetus, with image documentation and biometric measurements. Endovaginal scanning: Not performed COMPARISON: [facility], OB >= 14 WEEKS FETUS, 10/24/2024, 7:15. FINDINGS: General: A single living intrauterine gestation is present. Presentation: Breech. Placenta: Placental position is anterior , without previa. Amniotic fluid index: 19.9 cm, normal range is 5-24 cm. Single deepest vertical pocket is 5.9 cm. heart rate: 148 beats per minute. Maternal cervical canal: 3 cm long. Normal lower limit is 2.5 cm. biometrics: Biparietal diameter: 7.1 centimeters, 28 weeks 3 days Head circumference: 26.4 centimeters, 28 weeks 5 days Abdominal circumference: 26.1 centimeters, 30 weeks 2 days Femur length: 5.0 centimeters, 27 weeks 0 days Clinically estimated gestational age: 26 weeks 4 days Composite gestational age from present scan: 28 weeks 4 days Estimated weight and percentile: 1308 grams, a 9th percentile Other: Not applicable. IMPRESSION: 1. Single live intrauterine consistent with 20 weeks and 4 days. 2. Estimated weight is in the 99th percentile, concerning for macrosomia. 20 wk anatomy sand 10/24/24: Radiologist's impression: PROCEDURE: US OB >= 14 WEEKS FETUS INDICATIONS: 20 week anatomy scan FINDINGS: General: A single living intrauterine gestation is present. Presentation: Vertex. Placenta: Placental position is anterior, without previa. Amniotic fluid index: 13.5 cm, normal range is 5-24 cm. Single deepest vertical pocket is 5.6 cm. heart rate: 150 beats per minute. Maternal cervical canal: 2.8 cm long. Normal lower limit is 2.5 cm. biometrics: Biparietal diameter: 5.3 cm, 22 weeks 0 days Head circumference: 20.1 cm, 22 weeks 2 days Abdominal circumference: 18.2 cm, 23 weeks 0 days Femur length: 3.7 cm, 21 weeks 4 days Clinically estimated gestational age: 21 weeks 1 day Composite gestational age from present scan: 22 weeks 2 days Estimated weight and percentile: 497 g, 95th percentile. Anatomic survey: Neuro: Ventricles are non-dilated at less than 10 mm. Cisterna magna is normal at 3-11 mm. Cerebellum is normal in size and morphology. Nuchal skin fold: Normal at less than 6 mm between 14-21 weeks gestational age. Face: Nose and lips, facial profile are normal. Spine: No evidence for spina bifida. Heart: 4-chambered heart is present, with normal ventricular outflow tracts. Diaphragm: Diaphragm is intact. Stomach: Left-sided stomach is present. Kidneys: No hydronephrosis. Normal is less than 5 mm in 2nd trimester, less than 7 mm in 3rd trimester. Cord: 3-vessel cord has orthotopic insertion. Bladder: Normal in size. Extremities: All 4 extremities identified. Anterior uterine fibroid measuring 3.6 x 2.8 x 1.8 cm. IMPRESSION: 1. [place] living intrauterine at 22 weeks 2 days based on today's ultrasound. Fetus is in the 95th percentile for weight. 2. Normal placenta and amniotic fluid. 3. Normal and complete anatomic survey. 4. Uterine fibroid measuring 3.6 cm. Labs 12/01/24 20:50 Labs: Laboratory Results - last 24 hr 12/01/24 18:01 Urine Color Yellow Urine Appearance Clear Urine pH 6.0 Ur Specific [place] <=1.005 Urine Protein Negative Urine Glucose (UA) Negative Urine Ketones Negative Urine Occult Blood Negative Urine Nitrate Negative Urine Bilirubin Negative Urine Urobilinogen 0.2 Ur Leukocyte Esterase Negative Urine RBC 0-1/hpf D Urine WBC 0-1/hpf Ur Squamous Epith Cells 5-10 /hpf H Urine Bacteria Moderate (10-30) H Ur Culture Indicated? Cult not indicated Vol Urine Centrifuged 10ml (spun) Evaluation Evaluation Baseline heart rate: 150 Variability: Average (6-10) monitor accelerations: Present Monitor Decelerations: Absent Contraction Frequency (minutes): 4 Uterine Contraction Intensity: Mild Category of Tracing: Reactive Status: Category l Comments: Cervical length 2.99 cm. LES normal. Infant in breech position. Diagnosis, Plan/Disposition Final Diagnosis (1) Premature uterine contractions causing threatened premature labor in second trimester: Status: Acute (2) Uterine fibroid complicating care, baby not yet delivered in second trimester: Status: Acute Plan/Disposition Plan: LLD position, oral hydration-no benefit Nifedipine 10 mg p.o. Q 20 minutes x4 doses: Initial spacing of contractions followed by accelerated frequency and intensity of contractions. Nifedipine 60 mg extended release p.o. BID Initiate magnesium sulfate 2 g loading dose followed by 2 g IV Q hour - If contractions suppressed, wean off MgSO4 as Nifedipine levels rise - If contractions not suppressed, consider indomethacin (if the anterior fibroid is infarcting, lowering PG levels may be very helpful), consider betamethasone and MFM consult/transfer PRN. 0715, 12/02: Patient's contractions have subsided substantially overnight but irritability remains. FFN is negative. The patient has also started having some nausea and vomiting overnight. IV Zofran initiated. Hand off to Dr. Herminia Almazan, primary OB, via text message. OB Disposition: other (Observation status; admit as indicated)
[2024-12-01] MEDS: LACTATED RINGERS 1,000 ML 1000 ML IV (20:47)
[2024-12-01 20:54] LABS: Fetal Fibronectin Negative
[2024-12-01] MEDS: DEXTROSE 5%-LACTATED RINGERS 1,000 ML 500 ML IV (21:15)
[2024-12-01] MEDS: MAGNESIUM SULFATE 2 GM/50 ML PIGGYBACK IV (21:36)
[2024-12-01] MEDS: MAGNESIUM SULFATE 20 GM/500 ML IV.SOLN IV (22:02)
[2024-12-01] MEDS: ONDANSETRON 4 MG/2 ML INJ IV (22:11)
[2024-12-01] MEDS: ZOLPIDEM 5 MG TABLET PO (23:50)
[2024-12-02] MEDS: ONDANSETRON 4 MG/2 ML INJ IV ×2 (03:41→06:55)
[2024-12-02 03:52] LABS: Hematocrit 38.9 % (36-46); Hemoglobin 13.1 g/dL (12.0-16.0); Mean Corpuscular HGB Conc 33.7 % (30-36); Mean Corpuscular Hemoglobin 30.2 PG (26-34); Mean Corpuscular Volume 89.8 fL (80-100); Platelet Count 240 X10^3/uL (150-400); Red Blood Cell Count 4.33 X10^6/uL (4.0-5.2); Red Cell Distribution Width 13.7 % (11.6-14.8); White Blood Cell Count 11.6 X10^3/uL (4.5-11.0)
[2024-12-02 04:41] LABS: Neutrophils Absolute Manual 8236 /uL (3000-5900); Platelet Estimate Adequate on smear; RBC Morphology Normal Morphology; Total Cells Counted 100
[2024-12-02] MEDS: MAGNESIUM SULFATE 20 GM/500 ML IV.SOLN IV (07:18)
[2024-12-02] MEDS: NIFEdipine 30 MG TAB ER 60 MG PO (10:46)
== END 2024-12-02 12:00 | disposition home or self-care (01) ==
PROVIDERS: Obstetrics & Gynecology; Admitting Provider Student in an Organized Health Care Education/Training Program; Referring Provider Student in an Organized Health Care Education/Training Program; Visit Provider Student in an Organized Health Care Education/Training Program
DX: O47.02 False labor before 37 completed weeks of gestation, second trimester (principal); O34.12 Maternal care for benign tumor of corpus uteri, second trimester; D25.1 Intramural leiomyoma of uterus; Z3A.26 26 weeks gestation of pregnancy
CPT/HCPCS: 36415; 76815; 81001; 82731; 85025; G0378; G0379; J2405; J3475; J7121

== ENCOUNTER → 2024-12-13 11:26 | Outpatient (CLI) | payer OTHER, SELFPAY ==
[2024-12-13 14:12] LABS: Hematocrit 34.2 % (36-46); Hemoglobin 11.9 g/dL (12.0-16.0)
[2024-12-13 14:32] LABS: GTT (PREG) 1 Hour PP 50gm Dose 124 mg/dL (76-139)
== END ==
PROVIDERS: Referring Provider Student in an Organized Health Care Education/Training Program; Visit Provider Student in an Organized Health Care Education/Training Program
DX: Z13.1 Encounter for screening for diabetes mellitus (principal); Z13.0 Encounter for screening for diseases of the blood and blood-forming organs and certain disorders involving the immune mechanism
CPT/HCPCS: 36415; 82950; 85014; 85018

== ENCOUNTER → 2025-01-04 16:15 | Outpatient (CLI) | payer OTHER, SELFPAY ==
[2025-01-05 15:03] LABS: Rubella Antibody IgG 6.6 IU/mL (>15)
[2025-01-06 12:36] LABS: Mumps Virus IgG Antibody <9.0 AU/mL (Immune >10.9); Rubeola Measles IgG 24.8 AU/mL (Immune >16.4)
== END ==
PROVIDERS: Referring Provider Student in an Organized Health Care Education/Training Program; Visit Provider Student in an Organized Health Care Education/Training Program
DX: Z34.93 Encounter for supervision of normal pregnancy, unspecified, third trimester (principal)
CPT/HCPCS: 36415; 86735; 86762; 86765

== ENCOUNTER → 2025-01-24 10:52 | Outpatient (CLI) | payer OTHER, SELFPAY ==
--- NOTE | 2025-01-24 10:53 | DI.US.S_ITS ---
PROCEDURE: US OB LIMITED INDICATIONS: re-evaluate growth OUTSIDE/PRIOR DATING DATA: Last menstrual period (LMP): May 29, 2024. LMP-based estimated date of delivery (RAVI): March 05, 2025. First dating scan (date and location): July 25, 2024. Estimated date of delivery (RAVI) from first dating scan: March 04, 2025. The calculations are made using the ultrasound RAVI of March 05, 2025. TECHNIQUE: Real-time scanning was performed of the fetus, with image documentation and biometric measurements. Endovaginal scanning: Performed COMPARISON: , OB <= 14 WEEKS FETUS, 08/22/2024, 13:42. [facility], OB >= 14 WEEKS FETUS, 10/24/2024, 7:15. [facility], OB LIMITED, 12/01/2024, 19:05. FINDINGS: General: A single living intrauterine gestation is present. Presentation: Vertex. Placenta: Placental position is anterior , without previa. Amniotic fluid index: 14.0 cm, normal range is 5-24 cm. Single deepest vertical pocket is 6.2 cm. heart rate: 127 beats per minute. Maternal cervical canal: Not well visualized due to head and cannot be evaluated. biometrics: Biparietal diameter: 35 weeks 1 day Head circumference: 35 weeks 2 days Abdominal circumference: 38 weeks 5 days Femur length: 34 weeks 1 day Clinical estimated gestational age: 34 weeks 2 days Composite gestational age from present scan: 35 weeks 5 days Estimated weight and percentile: 3054 grams; 98th percentile Other: Not applicable. IMPRESSION: Single living intrauterine with estimated gestational age of 35 weeks 5 days in current study and expected age of 34 weeks 2 days based on initial ultrasound. Estimated weight 3054 grams corresponding to the 98th percentile for gestational age. Findings concerning for macrosomia. Dictated by: Meena Boyle MD, PhD on 01/24/2025 at 11:43 Approved by: Meena Boyle MD, PhD on 01/24/2025 at 11:49
== END ==
PROVIDERS: Referring Provider Student in an Organized Health Care Education/Training Program; Visit Provider Student in an Organized Health Care Education/Training Program
DX: O36.63X0 Maternal care for excessive fetal growth, third trimester, not applicable or unspecified (principal); Z3A.35 35 weeks gestation of pregnancy
CPT/HCPCS: 76815

== ENCOUNTER → 2025-02-07 13:55 | Outpatient (CLI) | payer OTHER, SELFPAY ==
[2025-02-08 15:22] LABS: Strep Grp B PCR POS for Grp B Strep
== END ==
LOC: LAB 13:56
PROVIDERS: Visit Provider Student in an Organized Health Care Education/Training Program
DX: Z36.85 Encounter for antenatal screening for Streptococcus B (principal)
CPT/HCPCS: 87653

== ENCOUNTER 2025-03-04 11:25 | Inpatient (IN) | payer OTHER, SELFPAY ==
[2025-03-04 14:00] LABS: Add Manual Diff / Slide Review NO; Basophils Absolute Auto 0 /uL (0-100); Basophils Percent Auto 0.5 % (0-2); Eosinophils Absolute Auto 100 /uL (0-450); Hematocrit 36.5 % (36-46); Hemoglobin 12.4 g/dL (12.0-16.0); Lymphocytes Absolute Auto 1600 /uL (1100-4500); Lymphocytes Percent Auto 17.8 % (25-40); Mean Corpuscular Hemoglobin 29.7 PG (26-34); Mean Corpuscular Volume 87.5 fL (80-100); Monocytes Absolute Auto 400 /uL (0-900); Monocytes Percent Auto 4.9 % (3-14); Neutrophils Absolute Auto 6800 /uL (1500-7000); Neutrophils Percent Auto 75.8 % (50-75); Platelet Count 165 X10^3/uL (150-400); Red Blood Cell Count 4.17 X10^6/uL (4.0-5.2); Red Cell Distribution Width 12.9 % (11.6-14.8); White Blood Cell Count 8.9 X10^3/uL (4.5-11.0)
[2025-03-04] MEDS: AMPICILLIN 2,000 MG in SODIUM CHLORIDE 0.9% 100 ML 200 MG IV (14:10)
--- NOTE | 2025-03-04 14:32 | P.HPOB_ITS ---
OB HPI Date/Time Date of admission: 03/04/25 Date Patient Seen: 03/04/25 Time Patient Seen: 02:30 History of Present Condition Chief complaint: obs RAVI Calculator 2 Estimated Delivery Date Method Current WG Current Estimate 03/05/25 LMP (Certain) 39w 6d Other Estimates 03/04/25 Ultrasound #1 40w 0d : 1 Narrative: This is a 34 yo G1 at 39w6d who presents for SROM. Amnisure positive. Intermittent cramping that has been ongoing for past few days, not consistent. Good movement. No vaginal bleeding. complicated by LGA (98th percentile growth at 34-36wks scan) and GBS pos status. care: good care Dating criteria OB: LMP confirmed by 1st trimester US Ultrasounds: normal 1st trimester US and normal mid trimester US Obstetrical complications: none Medical complications OB: none Preadmission Labs Last OB Lab Results: 2 Blood Type O Positive 03/04/25 13:45 Antibody Screen Negative 03/04/25 13:45 Hct 36.5 % (36-46) 03/04/25 13:45 Hgb 12.4 g/dL (12.0-16.0) 03/04/25 13:45 Hep Bs Antigen Negative s/c (NEGATIVE) 08/22/24 13:47 Hepatitis C Antibody Negative s/c (NEGATIVE) 08/22/24 13:47 Rubella Antibody 6.6 IU/mL (>15) L 01/04/25 16:18 VZV IgG Antibody Reactive (Non Reactive) 08/22/24 13:47 Glucose 1 Hr 50 gm 124 mg/dL (76-139) 12/13/24 13:26 Hemoglobin A1c 5.3 % (4.6-6.2) 03/31/16 09:40 Group B Strep (PCR) Pos for grp b strep H 02/07/25 13:43 Glucose Tolerance Testin hr Genetic Screens: Cell-free DNA: Normal Evaluation Evaluation Baseline heart rate: 125 Variability: Average (6-10) monitor accelerations: Present Monitor Decelerations: Absent Contraction Frequency (minutes): 5 Uterine Contraction Intensity: Mild Category of Tracing: Reactive Status: Category l PFSH Medical History (Updated 02/14/25 @ 11:49 by Herminia Almazan DO) Headache Chicken pox (~1993) Fibroids Abnormal Pap smear of cervix ADHD Ovarian cyst Post traumatic stress disorder (PTSD) History of hypoglycemia (03/31/16) Tension headache Hemorrhagic ovarian cyst Left shoulder strain Excessive thirst (03/31/16) Hx of fracture of toe (04/2014) Surgical History (Updated 09/06/24 @ 19:23 by Melanie Beach) Anesthesia History of esophagogastroduodenoscopy (EGD) (~2019) History of hysterosalpingogram History of gynecologic surgery (~08/2023) Family History (Updated 09/06/24 @ 19:28 by Melanie Beach) Father Diabetes mellitus Tachycardia Enlarged prostate Mother Hypertension Hyperlipidemia Pre-diabetes Anxiety ADHD Grandmother Alzheimer's dementia Lupus Mental health problem Sister Connective tissue disorder Anxiety Calcification of joint Sister Hyperlipidemia Grandfather Broken hip Living in assisted living Cancer Hyperlipidemia Grandmother Hyperlipidemia Hypertension Stroke Social History marital status: number of children: 0 household members: spouse lives independently: Yes caregiver/support person: No pets and animals: Yes (large dog) education level: college (Associate's degree) 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/hazards: Yes special jo needs: No travel history: recent (domestic only) seatbelt use: always helmet use: Yes water heater temp set < 120 deg: Yes working smoke detector in home: Yes fire extinguisher in home: Yes carbon monox detector in home: Yes firearms in home: Yes firearms unloaded and locked: Yes do you feel safe at home: Yes second hand exposure: No alcohol intake: former (Occasionally when not ) substance use type: does not use during the past year weight has: remained stable well-balanced diet: daily or most days daily servings fruits/ve-4 Type(s) of exercise: walking frequency: daily duration: 30-45 minutes/day Meds Home Medications and Allergies Home Medications Medication Instructions Recorded Confirmed Type vitamin-ferrous sulfate 1 tab PO DAILY 07/19/24 02/28/25 History 27 mg iron-folic acid 0.8 mg tablet prazosin 1 mg capsule 1 mg PO BEDTIME PRN Nightmares 12/01/24 02/28/25 History ondansetron HCl 4 mg tablet 4 mg PO Q8-12H PRN nausea and 01/06/25 02/28/25 Rx vomiting #30 tabs Allergies Allergy/AdvReac Type Severity Reaction Status Date / Time clarithromycin Allergy Mild Verified 02/28/25 10:23 Sulfa (Sulfonamide Allergy Mild Verified 02/28/25 10:23 Antibiotics) coconut AdvReac Intermediate Vomiting Verified 02/28/25 10:23 quinoa AdvReac Intermediate Vomiting Uncoded 02/28/25 10:23 rockfish AdvReac Intermediate Vomiting Uncoded 02/28/25 10:23 OB Exam Vital signs Blood Pressure: 108/74 Pulse Rate: 87 Objective Labs 03/04/25 13:45 Labs: Laboratory Results - last 24 hr 03/04/25 13:45 WBC 8.9 RBC 4.17 Hgb 12.4 Hct 36.5 MCV 87.5 MCH 29.7 MCHC 34.0 RDW 12.9 Plt Count 165 Neut % (Auto) 75.8 H Lymph % (Auto) 17.8 L Stewart % (Auto) 4.9 Eos % (Auto) 1.0 L Baso % (Auto) 0.5 Neut # (Auto) 6800 Lymph # (Auto) 1600 Stewart # (Auto) 400 Eos # (Auto) 100 Baso # (Auto) 0 Blood Type O Positive Antibody Screen Negative Assessment and Plan Assessment and Plan Assessment and Plan narrative: 34 yo G1 at 39w6d here with SROM with thin mec. GBS pos. EFW 98th percentile. SROM -admit for SROM -patient agreeable to pitocin GBS pos -start ampicillin now LGA -note at time of delivery to prepare for shoulder dystocia Time-Based Coding :: 45 minutes spent with patient and on the chart (including review of chart, obtaining history, exam, reviewing outside data, placing orders, documenting exam and treatment plan, and counseling patient) on 03/04/25.
[2025-03-04] MEDS: OXYTOCIN PREMIX 30 UNIT/500 ML PLAST..BAG IV (14:34)
[2025-03-04 14:41] VITALS: BP 108/74; PULSE 87
[2025-03-04 16:00] VITALS: BP 117/67
[2025-03-04] MEDS: FENT 2MCG/ML BUPIV 0.125% EPI 200 MCG/100 ML PLAST..BAG 8 MCG EPIDURAL (18:31)
--- NOTE | 2025-03-04 19:08 | PM.AN.REGBLK ---
Regional Block Pre-procedure PMH/ROS narrative: g1 p 0 SROM active labor PSH/Anesthesia history narrative: no hx RA ASA Class: II Labs: Hct 36.5 % (36-46) 03/04/25 13:45 Plt Count 165 X10^3/uL (150-400) 03/04/25 13:45 Medications: Current Medications Generic Name Dose Route Start Last Admin Trade Name Freq PRN Reason Stop Dose Admin Calcium Carbonate 1,000 mg 03/04/25 12:25 Calcium Carbonate 500 Mg Tab PO Q2HR PRN Dyspepsia Carboprost Tromethamine 250 mcg 03/04/25 12:25 Carboprost 250 Mcg/Ml Ampul IM Q90M PRN Bleeding Fentanyl 50 mcg 03/04/25 12:25 Fentanyl 100 Mcg/2 Ml Inj IV Q1H PRN Pain, Moderate (4-6) Lactated Ringer's 1,000 mls @ 100 mls/hr 03/04/25 12:30 Lactated Ringers IV 03/04/25 22:29 CONT SHRUTI Oxytocin/Lactated Ringer's 30 unit in 500 mls @ 200 mls/hr 03/04/25 12:25 Oxytocin Premix IV CONT PRN Bleeding Protocol Tranexamic Acid 1,000 mg/ 100 mls @ 600 mls/hr 03/04/25 12:25 Sodium Chloride IV NOW PRN Bleeding Oxytocin/Lactated Ringer's 30 unit in 500 mls @ 2 mls/hr 03/04/25 12:30 03/04/25 14:34 Oxytocin Premix IV 2 milliunit/min TITRATE SHRUTI 2 mls/hr Administration Protocol 2 MILLIUNIT/MIN Ampicillin Sodium 1,000 mg/ 100 mls @ 200 mls/hr 03/04/25 14:15 03/04/25 18:16 Sodium Chloride IV 200 mls/hr Q4H SHRUTI Administration Lidocaine HCl 20 ml 03/04/25 12:25 Lidocaine 1% 20 Ml INJ INTRA-OP PRN Post Delivery Methylergonovine Maleate 0.2 mg 03/04/25 12:25 Methylergonovine 0.2 Mg Tablet PO Q6HR PRN Heavy Bleeding Methylergonovine Maleate 0.2 mg 03/04/25 12:25 Methylergonovine 0.2 Mg/Ml Vial IM NOW PRN Bleeding Mineral Oil 30 ml 03/04/25 12:25 Mineral Oil 30 Ml Udc TOP PRN PRN Version Misoprostol 800 mcg 03/04/25 12:25 Misoprostol 200 Mcg Tablet [place] NOW PRN Bleeding Misoprostol 400 mcg 03/04/25 12:25 Misoprostol 200 Mcg Tablet SL NOW PRN Bleeding Naloxone HCl 0.2 mg 03/04/25 12:25 Naloxone 0.4 Mg/Ml Vial IV Q2MIN PRN Opiate Reversal Ondansetron HCl 4 mg 03/04/25 12:25 Ondansetron 4 Mg/2 Ml Inj IV Q4HR PRN Nausea And Vomiting Oxytocin 10 unit 03/04/25 12:25 Oxytocin 10 Unit/Ml Vial IM NOW PRN Bleeding Allergies: Allergies Allergy/AdvReac Type Severity Reaction Status Date / Time clarithromycin Allergy Mild Verified 02/28/25 10:23 Sulfa (Sulfonamide Allergy Mild Verified 02/28/25 10:23 Antibiotics) coconut AdvReac Intermediate Vomiting Verified 02/28/25 10:23 quinoa AdvReac Intermediate Vomiting Uncoded 02/28/25 10:23 rockfish AdvReac Intermediate Vomiting Uncoded 02/28/25 10:23 --: pt hp obtaine. r/b/a discussed. consent to proceed. drape and prep with sterile technique. VSS. l3 l4 interspace ID's. lido 1% 3 cc at skin. hustead introduced. immediate bone contact. moved slightly to the right and down. BRIEN at 6. 27 g pencil point needle through introducer. removed and catheter placed. 2336: pain 10/10. vomiting. now 9 cm. crampy pressure in lower front of abdomen. gave fentanyl 100 mcg with bupivacaine 0.25% 2 cc in icremental injections. 2345: increased rate to 10 ml/hr 03/05 0002 nausea persists. gave ephedrine 5 mg with zofran 4 mg. pain tolerable. 0438 suprapubic cramping. gave bupivacaine 0.25% 4 mL and increased bolus dose to 4 mL q 15 minutes. pain more tolerable now. Procedure Insertion date: 03/04/25 Insertion time: 18:22 Prep/Local: betadine x3 (chloraprep) and 1% lidocaine Interspace: l3 l4 Patient position: sitting Needle: 18 gauge Anneltead Loss of resistance with: saline BRIEN at (cm): 6 Catheter in SPACE (cm): 15 Sensory level: t10 Insertion: No CSF, No Blood, No Paresthesia with insertion, No Paresthesia with injection and No Test dose reaction Initial Medications TEST DOSE time: 18:23 TEST DOSE: 1.5% lidocaine with epinephrine 1:200k (mL): 3 BOLUS DOSE time: 18:28 BOLUS DOSE (mL): 4 BOLUS DOSE med: other (infusate) Infusion INFUSION: 0.125% bupivacaine and with fentanyl 2 mcg/mL Initial rate (mL/hr): 8 Post-procedure Anesthesia date START: 03/04/25 Anesthesia time START: 18:22 Anesthesia date END: 03/05/25 Anesthesia time END: 09:38 Post-procedure Anesthesia Assessment: Yes CV function: HR/BP stable, Yes Resp function: RR/sat/airway adequate, Yes Post-op hydration adequate, Yes Pain control adequate, Yes Nausea & vomiting absent, Yes Temperature > 36 C, Yes Mental status appropriate and Yes Anesthesia complications (convert to surgical for c/s)
[2025-03-04] MEDS: AMPICILLIN 1,000 MG in SODIUM CHLORIDE 0.9% 100 ML 200 MG IV ×2 (19:14→23:08)
[2025-03-04] MEDS: LACTATED RINGERS 1,000 ML 100 ML IV (19:18)
--- NOTE | 2025-03-04 21:08 | PM.OBPNLAB ---
Pain Control Pain control: tolerating well Pelvic Exam Dilation (cm): 2 Effacement (%): 80 station: -2 Amniotic membrane status: Ruptured Contractions Contractions on admission: irregular Monitor mode: External Pitocin rate (mU/min): 18 Contraction pattern: Regular Contraction intensity: Mild Status status: Category l Heart Rate Baseline: 130 Monitor Accelerations: Present Monitor Decelerations: Absent Monitor Variability: Moderate Assessment and Plan Assessment: active labor Plan: continuous present management Comments: 34 yo G1 at 39w6d here with SROM with thin mec (SROM 03/04 11:00am). GBS pos. EFW 98th percentile. SROM -SVE 2/80/-2 -pitocin at 18 -epidural in place -continue with position changes GBS pos -continue ampicillin LGA -note at time of delivery to prepare for shoulder dystocia
[2025-03-04] MEDS: ONDANSETRON 4 MG/2 ML INJ IV (21:21)
--- NOTE | 2025-03-04 22:33 | PM.OBPNLAB ---
Date/Time Date Patient Seen: 03/04/25 Time Patient Seen: 10:30 Pain Control Pain control: tolerating well and epidural Pelvic Exam Dilation (cm): 6 Effacement (%): 80 station: -1 Amniotic membrane status: Ruptured Contractions Monitor mode: External Pitocin rate (mU/min): 18 Contraction pattern: Regular Contraction intensity: Moderate Status status: Category l Heart Rate Baseline: 145 Monitor Accelerations: Present Monitor Decelerations: Absent Monitor Variability: Moderate Assessment and Plan Assessment: induction ongoing Plan: continuous present management Comments: 34 yo G1 at 39w6d here with SROM with thin mec (SROM 03/04 11:00am). GBS pos. EFW 98th percentile. SROM -SVE 6/100/-1 -pitocin at 18 -epidural in place -continue with position changes GBS pos -continue ampicillin LGA -note at time of delivery to prepare for shoulder dystocia
[2025-03-05] MEDS: FENT 2MCG/ML BUPIV 0.125% EPI 200 MCG/100 ML PLAST..BAG 10 MCG EPIDURAL ×2 (00:15→06:36)
[2025-03-05] MEDS: LACTATED RINGERS 1,000 ML 100 ML IV (02:04)
[2025-03-05] MEDS: AMPICILLIN 1,000 MG in SODIUM CHLORIDE 0.9% 100 ML 200 MG IV ×2 (03:47→08:10)
[2025-03-05] MEDS: ONDANSETRON 4 MG/2 ML INJ IV ×4 (04:02→21:55)
[2025-03-05] MEDS: METOCLOPRAMIDE 10 MG/2 ML INJ IV ×2 (06:16→18:25)
--- NOTE | 2025-03-05 07:31 | PM.OBPNLAB ---
Date/Time Date Patient Seen: 03/05/25 Pain Control Pain control: epidural Comments: in pain Pelvic Exam Dilation (cm): 100 Effacement (%): 100 station: +1 Amniotic membrane status: Ruptured Contractions Contractions on admission: regular Monitor mode: External Pitocin rate (mU/min): 6 Contraction pattern: Regular Contraction intensity: Moderate Status status: Category l Heart Rate Baseline: 15 Monitor Accelerations: Present Monitor Decelerations: Episodic Monitor Variability: Moderate Assessment and Plan Assessment: induction ongoing Plan: continuous present management Comments: 34 yo G1 at 39w6d here with SROM with thin mec (SROM 03/04 11:00am). GBS pos. EFW 98th percentile. SROM -SVE complete -pitocin at 6 -epidural in place -pushing began at 6:26am GBS pos -continue ampicillin LGA -note at time of delivery to prepare for shoulder dystocia
--- NOTE | 2025-03-05 09:04 | PM.OBPNLAB ---
Date/Time Date Patient Seen: 03/05/25 Time Patient Seen: 09:00 Pain Control Pain control: tolerating well Pelvic Exam Dilation (cm): 10 Effacement (%): 100 station: +1 Amniotic membrane status: Ruptured Contractions Monitor mode: External Contraction pattern: Regular Contraction intensity: Moderate Status status: Category l Assessment and Plan Plan: Comments: 34 yo G1 at 39w6d here with SROM with thin mec (SROM 03/04 11:00am). GBS pos. EFW 98th percentile. SROM, EDC 03/05 -SVE complete -pitocin at 6 -epidural in place -pushing began at 6:26am, patient pushing excellently, minimal movement after 2.5 hrs; will proceed with for arrest of descent and cephalopelvic disproportion -It was explained to the patient that a section is a surgery to deliver the baby through an incision in the abdominal wall and uterus.? All procedures can be associated with risk and unforeseen complications, which can be immediate or delayed.? Risks and complications of section include, but are not limited to:? infection of the uterus, pelvic organs, or skin; inadvertent injury to internal organs such as the bowel, bladder, or possibly even the baby; blood loss, transfusion, and/or life-threatening hemorrhage requiring hysterectomy; blood clots in the legs, pelvic organs, or lungs; adverse reaction to medications or anesthesia during surgery; development of placenta accreta spectrum in a subsequent ; and increased risk of section in a subsequent . GBS pos -ancef and azithro LGA -noted
[2025-03-05] MEDS: AZITHROMYCIN 500 MG in DEXTROSE 5% IN WATER 250 ML 250 MG IV (09:29)
[2025-03-05 11:03] VITALS: BP 112/71; PULSE 88; RESP 19; TEMP 36.6; O2SAT 96
[2025-03-05 11:07] VITALS: BP 98/79; PULSE 94; RESP 16; O2SAT 95
[2025-03-05 11:11] VITALS: BP 105/70; PULSE 90; RESP 25; O2SAT 95
--- NOTE | 2025-03-05 11:14 | PM.OBCS.1 ---
Operative Date/Time/Diagnoses Date of procedure: 03/05/25 Time of procedure: 10:00 Pre-op diagnosis: Arrest of Dilation; Cephalopelvic Disproportion Post-op diagnosis: same Procedure & Clinicians Procedure: Primary Same procedure as scheduled: Yes Indications: Arrest of descent; cephalopelvic disproportion Surgeon: Geeta Flanagan Administrative Manager: Karine Rothman Reason for Administrative Manager: unscheduled Anesthesia Type: Epidural Operative Notes Findings: Normal uterus, ovaries, and tubes; Anterior uterine fibroid Closure Type: primary Specimen(s): cord blood Applied: Catheter Estimated Blood Loss (mL): 600 Blood products transfused: none Procedure in detail: OPERATIVE COURSE: The patient was taken to the operating room where epidural anesthesia was dosed to surgical level. She was then prepared and draped in the normal sterile fashion in the dorsal supine position with a leftward tilt. Anesthesia was tested and found to be adequate. A Pfannensteil skin incision was then made with the scalpel and carried through to the underlying layer of fascia with the scalpel. The fascia was incised in the midline and the incision extended laterally with the Cassidy scissors. The superior aspect of the fascial incision was then grasped with Elsie clamps, elevated with the help of the surgical services asst, and the underlying rectus muscles dissected off bluntly and sharply where needed. Attention was then turned to the inferior aspect of the incision which, in a similar fashion, was grasped, tented up with Elsie clamps, and the rectus muscle dissected off bluntly and sharply with Cassidy scissors. The rectus muscles were then in the midline, and the peritoneum was identified and entered sharply. The peritoneal incision was then extended with good visualization of the bladder. Retraction was provided by the surgical services asst. The Trung retractor was then inserted and the vesicouterine peritoneum identified, grasped with pick-ups and entered sharply with the Metzenbaum scissors. The incision was then extended laterally and the bladder flap created digitally. Next, the lower uterine segment was incised in a transverse fashion with the scalpel, with the surgical services asst providing suction. The uterine incision was then extended superolaterally by pulling superolaterally on both sides. Membranes were ruptured and fluid was mec stained. The 's head was flexed out of LOP position and delivered atraumatically, with fundal pressure by the surgical services asst. The nose and mouth were suctioned with bulb suction and the cord was clamped and cut. The was handed off to the waiting nursing staff. Cord blood was collected for Rh status. The placenta was then delivered with gentle cord traction. The uterus was then exteriorized and cleared of all clots and debris. The uterine incision was repaired with in a running, locked fashion to midline. A second suture was used to meet the first at midline. A third layer of 0 monocryl was used to obtain excellent hemostasis. The uterus was returned to the abdomen. The gutters were cleared of all clots. Hysterotomy was investigated and found to be hemostatic. The Trung retractor was removed. Uterine fibroid noted. The fascia was reapproximated with 0 vicryl in a running fashion. The subcutaneous tissue was reapproximated with 3-0 vicryl. The skin was closed with 3-0 monocryl. The surgical services asst helped with retraction during closures. SPONGE AND NEEDLE COUNTS: Correct x3. DRESSING: Glue, steri strips ANTICOAGULATION: SCDs applied prior to Surgery Preop antibiotics given (see MAR). The patient was taken to recovery room having tolerated procedure well. Complications: none Post-operative Condition: stable Disposition: PACU Aftercare: routine postop
[2025-03-05] MEDS: LACTATED RINGERS 1,000 ML 999 ML IV (11:17)
[2025-03-05] MEDS: ACETAMINOPHEN IV 1,000 MG/100 ML VIAL 400 MG IV (11:23)
[2025-03-05 11:26] VITALS: BP 120/63; PULSE 96; RESP 16; O2SAT 97
[2025-03-05] MEDS: METOCLOPRAMIDE 10 MG/2 ML INJ 5 MG IV (13:30)
[2025-03-05] MEDS: FAMOTIDINE 20 MG/2 ML VIAL IV (15:58)
[2025-03-05] MEDS: KETOROLAC 30 MG/ML VIAL IV ×2 (17:24→22:58)
[2025-03-05] MEDS: DEXAMETHASONE 4 MG/ML VIAL IV (17:30)
[2025-03-05] MEDS: diphenhydrAMINE 50 MG/ML VIAL 12.5 MG IV (19:40)
[2025-03-05] MEDS: SCOPOLAMINE 1 PATCH TOP (20:03)
[2025-03-05] MEDS: LACTATED RINGERS 1,000 ML 125 ML IV (20:04)
[2025-03-06] MEDS: KETOROLAC 30 MG/ML VIAL IV (05:06)
[2025-03-06] MEDS: ACETAMINOPHEN 325 MG TABLET 650 MG PO ×3 (05:50→18:52)
[2025-03-06 06:16] LABS: Add Manual Diff / Slide Review NO; Basophils Absolute Auto 0 /uL (0-100); Basophils Percent Auto 0.2 % (0-2); Eosinophils Absolute Auto 0 /uL (0-450); Hematocrit 30.5 % (36-46); Hemoglobin 10.4 g/dL (12.0-16.0); Lymphocytes Absolute Auto 1200 /uL (1100-4500); Lymphocytes Percent Auto 6.6 % (25-40); Mean Corpuscular HGB Conc 34.1 % (30-36); Mean Corpuscular Hemoglobin 29.7 PG (26-34); Mean Corpuscular Volume 87.1 fL (80-100); Monocytes Absolute Auto 1000 /uL (0-900); Monocytes Percent Auto 5.8 % (3-14); Neutrophils Absolute Auto 15500 /uL (1500-7000); Neutrophils Percent Auto 87.4 % (50-75); Platelet Count 177 X10^3/uL (150-400); Red Blood Cell Count 3.51 X10^6/uL (4.0-5.2); Red Cell Distribution Width 13.5 % (11.6-14.8); White Blood Cell Count 17.7 X10^3/uL (4.5-11.0)
--- NOTE | 2025-03-06 07:56 | P.PNOB_ITS ---
Subjective - OB Subjective Patient comments: pain well controlled and tolerating diet [place] baby status: doing well [place] feeding status: breast and bottle feeding Narrative: 34 yo G1 now P1 post op day 1 from a delivery for arrest of descent and cephalopelvic disproportion. She is recovering well. Schaffer still in place for minimal output - improved now and will take out today. Pain well controlled. Pumping and bottle feeding, supplementation with formula. Date Patient Seen: 03/06/25 Time Patient Seen: 07:30 Exam Vital Signs (past 8 hours): Oxygen Delivery Method Room Air Narrative Exam Narrative: NAD, comfortable in bed, breathing easily. Objective Labs 03/06/25 06:00 Labs: Laboratory Results - last 24 hr 03/06/25 06:00 WBC 17.7 H D RBC 3.51 L Hgb 10.4 L Hct 30.5 L MCV 87.1 MCH 29.7 MCHC 34.1 RDW 13.5 Plt Count 177 Neut % (Auto) 87.4 H Lymph % (Auto) 6.6 L [place] % (Auto) 5.8 Eos % (Auto) 0.0 L Baso % (Auto) 0.2 Neut # (Auto) 94005 H Lymph # (Auto) 1200 [place] # (Auto) 1000 H Eos # (Auto) 0 Baso # (Auto) 0 Assessment & Plan Plan day: 1 plan OB: routine care and routine postop care Time-Based Coding :: 30 minutes spent with patient and on the chart (including review of chart, obtaining history, exam, reviewing outside data, placing orders, documenting exam and treatment plan, and counseling patient) on 03/06/25.
[2025-03-06] MEDS: DOCUSATE 100 MG CAPSULE PO (08:14)
[2025-03-06] MEDS: PRENATAL VIT,CALC/IRON/FOLIC 1 TABLET 1 TAB PO (08:14)
[2025-03-06] MEDS: IBUPROFEN 600 MG TABLET PO ×2 (12:39→18:53)
[2025-03-06] MEDS: OXYCODONE IR 5 MG TABLET PO ×3 (13:42→23:40)
[2025-03-07] MEDS: ACETAMINOPHEN 325 MG TABLET 650 MG PO ×2 (00:35→06:54)
[2025-03-07] MEDS: IBUPROFEN 600 MG TABLET PO ×2 (00:36→06:55)
[2025-03-07] MEDS: OXYCODONE IR 5 MG TABLET PO (05:47)
--- NOTE | 2025-03-07 09:33 | PM.OBDS.1 ---
Discharge Providers Provider Date of admission: 03/04/25 11:25 Discharge Date: 03/07/25 Primary care physician: Doctor Blake MD Consults: 03/05/25 11:05 Consult to Food And Beverage Director Routine Comment: Discharge provider: Herminia Almazan DO Summary Hospital Course Date Patient Seen: 03/07/25 Time Patient Seen: 09:33 Diagnoses: Term gestation at 40+0wks, delivered via primary low transverse section Arrest of descent Group B strep carrier Rubella nonimmune status Hospital Course: 34yo [id number] admitted at 39+6wks with ruptured membranes. She progressed to complete dilation, and after over 2hrs of pushing efforts there was minimal descent, thus she was counseled and consented for primary low transverse delivery. Her delivery was uncomplicated, and productive of a viable male infant. Her course was unremarkable. On post-op day #2, she was ambulating, tolerating regular diet, voiding spontaneously with minimal lochia. Her pain was well controlled with oral medications, thus she was discharged to home on post-op day #2. Peripartum Data Delivery Method: Section Procedures: External monitoring Neuraxial anesthesia delivery complications: none 1: Gender: Male Disposition of : home Discharge Diagnosis (1) Delivery by section using transverse incision of lower segment of uterus: Status: Acute (2) Group B streptococcal carriage complicating : Status: Acute (3) Rubella non-immune status, antepartum: Status: Acute (4) Single live : Status: Acute (5) 40 weeks gestation of : Status: Acute Status at Discharge Cognitive/behavioral status at discharge: oriented Functional status at discharge: independent ambulation Overall status at discharge: patient is progressing back to baseline Time Spent with Patient Time attestation: Total time spent providing and/or coordinating discharge services: Time spent: Less than 30 minutes Objective Labs 03/06/25 06:00 Exam Vital Signs (past 8 hours): Oxygen Delivery Method Room Air vitals reviewed in OBIX, within normal parameters Const General: cooperative, healthy appearing, comfortable and No acute distress Resp Effort & Inspection: normal respiratory effort and able to speak in complete sentences GI Inspection: normal to inspection Other: soft, nontender Other: fundus firm and nontender at U-2 Skin General: no rashes or lesions noted Other: incision clean/dry/intact with steri-strips in place Neuro General: patient alert and patient awake Extrem General: normal to inspection, no pedal edema and no calf tenderness Psych Mood: congruent mood Affect: normal affect Discharge Plan Discharge Plan Patient Disposition: Home Provider Discharge Comment: Take ibuprofen 600 mg every 6 hours and acetaminophen 650 mg every 6 hours as needed for pain. Use oxycodone 5 mg every 4 hours as needed for severe pain. Avoid lifting greater than 20 lb for at least 6 weeks. Avoid placing anything in the vagina for at least 6 weeks. Discharge orders & Medications Prescriptions: New oxycodone 5 mg Tablet 5 mg PO Q4H PRN (Reason: Pain, Moderate (4-6)) Qty: 10 0RF Continued vit-ferrous sulfat-FA 27 mg iron- 0.8 mg tablet 1 tab PO DAILY prazosin 1 mg capsule 1 mg PO BEDTIME PRN (Reason: Nightmares) Discontinued ondansetron HCl 4 mg tablet 4 mg PO Q8-12H PRN (Reason: nausea and vomiting) Qty: 30 3RF Follow up/Referrals: Velvet Asher MD [Physician] - 6 Weeks (6 week post follow up appointment with Dr. Asher on April 26, 2025 at 10am please arrive 15 minutes prior to your scheduled appointment time.) Herminia Almazan DO [Physician] - 1 Week (follow up incision check, Thursday, March 13, 2025 @ 2pm with Dr. Almazan. please arrive 15 minutes prior to your scheduled appointment time.) Diet/Activity/Treatments Diet: Diet as Tolerated Activity: As tolerated Skin/Wound/Dressing Care Skin care: You may shower normally. Report to your healthcare provider any signs of infection, such as:: chills, fever, increased pain, unusual drainage and unusual redness Dressing: The steri-strips will fall off in 1 week. Visit Report/Discharge Packet Instructions: DI for Hemorrhage, DI for , DI for Prescription Opioid Use Stand Alone Forms: Discharge: Care, Patient Portal/API, Stroke Signs & Symptoms Discharge Data Primary Care Provider: Miscellaneous,Doctor
--- NOTE | 2025-03-07 10:27 | PM.PN.1 ---
Subjective Subjective Interval history: visited with patient and SO in LD 4. pt ambulatory, able to eat small amounds of food, urinate/pass gas. no complaints. Exam Vital Signs (past 8 hours): Oxygen Delivery Method Room Air Objective Labs 03/06/25 06:00 [facility] Medical History (Updated 03/07/25 @ 09:39 by Herminia Almazan DO) Headache Chicken pox (~1993) Fibroids Abnormal Pap smear of cervix ADHD Ovarian cyst Post traumatic stress disorder (PTSD) History of hypoglycemia (03/31/16) Tension headache Hemorrhagic ovarian cyst Left shoulder strain Excessive thirst (03/31/16) Hx of fracture of toe (04/2014) Surgical History (Updated 09/06/24 @ 19:23 by Melanie Beach) Anesthesia History of esophagogastroduodenoscopy (EGD) (~2019) History of hysterosalpingogram History of gynecologic surgery (~08/2023) Family History (Updated 09/06/24 @ 19:28 by Melanie Beach) Father Diabetes mellitus Tachycardia Enlarged prostate Mother Hypertension Hyperlipidemia Pre-diabetes Anxiety ADHD Grandmother Alzheimer's dementia Lupus Mental health problem Sister Connective tissue disorder Anxiety Calcification of joint Sister Hyperlipidemia Grandfather Broken hip Living in assisted living Cancer Hyperlipidemia Grandmother Hyperlipidemia Hypertension Stroke Social History marital status: number of children: 0 household members: spouse lives independently: Yes caregiver/support person: No pets and animals: Yes (large dog) education level: college (Associate's degree) 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/hazards: Yes special jo needs: No travel history: recent (domestic only) seatbelt use: always helmet use: Yes water heater temp set < 120 deg: Yes working smoke detector in home: Yes fire extinguisher in home: Yes carbon monox detector in home: Yes firearms in home: Yes firearms unloaded and locked: Yes do you feel safe at home: Yes second hand exposure: No alcohol intake: former (Occasionally when not ) substance use type: does not use during the past year weight has: remained stable well-balanced diet: daily or most days daily servings fruits/ve-4 Type(s) of exercise: walking frequency: daily duration: 30-45 minutes/day Assessment & Plan Time-Based Coding :: [TOTAL MINUTES] spent with patient and on the chart (including review of chart, obtaining history, exam, reviewing outside data, placing orders, documenting exam and treatment plan, and counseling patient) on [DATE].
== END 2025-03-07 10:30 | disposition home or self-care (01) | DRG 788 ==
PROVIDERS: Admitting Provider Student in an Organized Health Care Education/Training Program; Referring Provider Student in an Organized Health Care Education/Training Program; Visit Provider Student in an Organized Health Care Education/Training Program
PROC: 10D00Z1 Extraction of Products of Conception, Low, Open Approach (ICD-10-PCS; CPT 59514; principal; 2025-03-05 09:30)
DX: O62.1 Secondary uterine inertia (principal); O33.5XX0 Maternal care for disproportion due to unusually large fetus, not applicable or unspecified; O36.63X0 Maternal care for excessive fetal growth, third trimester, not applicable or unspecified; Z37.0 Single live birth; O99.824 Streptococcus B carrier state complicating childbirth; Z3A.39 39 weeks gestation of pregnancy; Z91.013 Allergy to seafood; Z91.018 Allergy to other foods; Z88.2 Allergy status to sulfonamides; Z88.1 Allergy status to other antibiotic agents
CPT/HCPCS: 36415; 59025; 59050; 84112; 85025; 86850; 86900; 86901; G0379; J0131; J0290; J1100; J1200; J1885; J2274; J2405; J2590; J2765; J3010